=== PATIENT | female | born 1960 | race Two or more races ===

== ENCOUNTER 2016-12-26 22:26 | Emergency (ER) | payer OTHER ==
[~2016-12-26] VITALS: Ht 172.7 cm; Wt 90.0 kg
[2016-12-26] MEDS ORDERED: GABA-531 PO (22:36)
[2016-12-26] MEDS ORDERED: CYCL10 PO (22:36)
[2016-12-26] MEDS ORDERED: OMEP20 PO (22:36)
[2016-12-26] MEDS ORDERED: DiphenhydrAMINE HCL 25 MG CAPSULE PO ONE (23:45)
[2016-12-26] MEDS ORDERED: ACETAMINOPHEN/CODEINE 300-30 MG TABLET PO ONE (23:45)
[2016-12-26] MEDS ORDERED: CEPHALEXIN MONOHYDRATE 500 MG CAPSULE PO ONE (23:45)
[2016-12-27 00:59] VITALS: BP 149/79
== END 2016-12-27 01:30 | disposition home or self-care (01) ==
LOC: EMS 22:27
DX: J40 Bronchitis, not specified as acute or chronic (principal); K21.9 Gastro-esophageal reflux disease without esophagitis
CPT/HCPCS: 99284

== ENCOUNTER 2017-02-12 15:24 | Emergency (ER) | payer OTHER ==
[~2017-02-12] VITALS: Ht 162.6 cm; Wt 100.0 kg
[~2017-02-12 15:24] MED LIST: CYCL10 PO; GABA-531 PO; OMEP20 PO
[2017-02-12 16:31] VITALS: BP 134/81
[2017-02-12] MEDS ORDERED: DEXAMETHASONE SOD PHOS 4 MG/ML 5 ML VIAL IM ONE (18:15)
== END 2017-02-12 18:59 | disposition home or self-care (01) ==
LOC: EMS 15:25
DX: J02.8 Acute pharyngitis due to other specified organisms (principal); J06.9 Acute upper respiratory infection, unspecified; J40 Bronchitis, not specified as acute or chronic; B97.89 Other viral agents as the cause of diseases classified elsewhere; K21.9 Gastro-esophageal reflux disease without esophagitis
CPT/HCPCS: 71020; 87430; 96372; 99285; J1100

== ENCOUNTER 2021-05-24 17:39 | Emergency (ER) | payer OTHER ==
[~2021-05-24] VITALS: Ht 175.3 cm; Wt 109.1 kg
[~2021-05-24 17:39] MED LIST changes: -CYCL10 PO; +CYCL10TA17 PO; +GABA-1181 PO; -GABA-531 PO
[2021-05-24] MEDS ORDERED: TRAM50TA4 PO (17:53)
[2021-05-24 18:21] LABS: BASOPHILS % (AUTO) 0.6 % (0.0-2.0); EOSINOPHILS % (AUTO) 2.2 % (1.0-6.0); HEMATOCRIT 39.9 % (36-46); LYMPHOCYTES # (AUTO) 3.7 K/uL (1.0-4.8); LYMPHOCYTES % (AUTO) 36.9 % (22.0-44.0); MEAN CORPUSCULAR HEMOGLOBIN 26.3 pg (26.0-34.0); MEAN CORPUSCULAR HGB CONC 32.7 G/dL (31.0-37.0); MEAN CORPUSCULAR VOLUME 80 fL (80-100); MONOCYTES % (AUTO) 9.8 % (2.0-9.0); NEUTROPHILS # (AUTO) 5.1 K/uL (1.8-7.7); NEUTROPHILS % (AUTO) 50.5 % (40.0-70.0); PLATELET COUNT (AUTO) 337 K/uL (150-450); RED BLOOD CELL COUNT(AUTO) 4.96 MIL/uL (4.00-5.20)
[2021-05-24 18:29] LABS: ANION GAP 7 mmol/L (8-16); CARBON DIOXIDE 29 mmol/L (22-29); CHLORIDE 105 mmol/L (98-107); CREATININE 0.59 mg/dL (0.60-1.30); GLUCOSE,RANDOM 97 mg/dL (70-110); POTASSIUM 4.6 mmol/L (3.5-5.1); SODIUM SERUM 141 mmol/L (136-145); UREA NITROGEN, BLOOD 11 mg/dL (7-18)
[2021-05-24 18:30] LABS: CALCIUM, TOTAL 9.6 mg/dL (8.8-10.5); GLOMERULAR FILTR. RATE CALC > 60 mL/min (>60)
[2021-05-24 18:43] LABS: ALANINE AMINOTRANSFERASE 31 U/L (12-78); ALBUMIN 2.8 g/dL (3.4-5.0); ALKALINE PHOSPHATASE 84 U/L (46-116); ASPARTATE AMINOTRANSFERASE 22 U/L (15-37); BILIRUBIN,TOTAL 0.2 mg/dL (0.1-1.0); TOTAL PROTEIN, SERUM 7.7 g/dL (6.4-8.2)
[2021-05-24] MEDS ORDERED: FAMOTIDINE 20 MG TABLET PO ONE (20:15)
[2021-05-24] MEDS ORDERED: PB/HYOSCY/ATR/SCOP/LIDO/MAALOX 55 ML BOTTLE PO ONE (20:15)
[2021-05-24 21:08] VITALS: BP 133/69
== END 2021-05-24 21:08 | disposition home or self-care (01) ==
LOC: EMS 17:44
DX: R07.2 Precordial pain (principal); K21.9 Gastro-esophageal reflux disease without esophagitis; M54.30 Sciatica, unspecified side
CPT/HCPCS: 71045; 80053; 84484; 85025; 93005; 99285; 36415-L1; 36415-TC

== ENCOUNTER 2021-08-15 18:59 | Emergency (ER) | payer OTHER ==
[~2021-08-15] VITALS: Ht 170.2 cm; Wt 10.4 kg
[~2021-08-15 18:59] MED LIST changes: +TRAM50TA4 PO
[2021-08-15 19:37] VITALS: BP 139/78
[2021-08-15] MEDS ORDERED: CARB-60 PO (19:37)
[2021-08-15] MEDS ORDERED: MAG HYDROX/AL HYDROX/SIMETH 30 ML SUSP UDCUP PO ONE (19:45)
[2021-08-15] MEDS ORDERED: FAMOTIDINE 20 MG TABLET PO ONE (19:45)
[2021-08-15] MEDS ORDERED: ACETAMINOPHEN 500 MG TABLET PO ONE (19:45)
[2021-08-15] MEDS ORDERED: HYD25 PO (19:47)
[2021-08-15] MEDS ORDERED: IBUP-2077 PO (19:47)
[2021-08-15] MEDS ORDERED: CARB200T6 PO (19:47)
[2021-08-15 21:11] LABS: BASOPHILS % (AUTO) 0.6 % (0.0-2.0); EOSINOPHILS % (AUTO) 3.9 % (1.0-6.0); HEMATOCRIT 40.7 % (36-46); HEMOGLOBIN 13.7 g/dL (12.0-16.0); LYMPHOCYTES # (AUTO) 3.3 K/uL (1.0-4.8); LYMPHOCYTES % (AUTO) 41.9 % (22.0-44.0); MEAN CORPUSCULAR HEMOGLOBIN 27.6 pg (26.0-34.0); MEAN CORPUSCULAR HGB CONC 33.8 G/dL (31.0-37.0); MEAN CORPUSCULAR VOLUME 82 fL (80-100); MONOCYTES # (AUTO) 0.8 K/uL (0.1-1.0); MONOCYTES % (AUTO) 10.5 % (2.0-9.0); NEUTROPHILS # (AUTO) 3.4 K/uL (1.8-7.7); NEUTROPHILS % (AUTO) 43.1 % (40.0-70.0); PLATELET COUNT (AUTO) 323 K/uL (150-450); RED BLOOD CELL COUNT(AUTO) 4.98 MIL/uL (4.00-5.20); RED CELL DISTRIBUTION WIDTH 17.5 % (11.5-14.5)
[2021-08-15 21:18] LABS: ANION GAP 4 mmol/L (8-16); CARBON DIOXIDE 31 mmol/L (22-29); CHLORIDE 101 mmol/L (98-107); CREATININE 0.63 mg/dL (0.60-1.30); GLOMERULAR FILTR. RATE CALC > 60 mL/min (>60); GLUCOSE,RANDOM 106 mg/dL (70-110); SODIUM SERUM 136 mmol/L (136-145); UREA NITROGEN, BLOOD 10 mg/dL (7-18)
[2021-08-15 21:25] LABS: ALANINE AMINOTRANSFERASE 37 U/L (12-78); ALBUMIN 3.3 g/dL (3.4-5.0); ALKALINE PHOSPHATASE 104 U/L (46-116); ASPARTATE AMINOTRANSFERASE 25 U/L (15-37); BILIRUBIN,TOTAL 0.2 mg/dL (0.1-1.0); CREATINE KINASE, TOTAL ONLY 60 U/L (26-192); TOTAL PROTEIN, SERUM 8.1 g/dL (6.4-8.2)
[2021-08-15 21:31] LABS: B-TYPE NATRIURETIC PEPTIDE < 5 pg/mL (0-100)
== END 2021-08-15 23:28 | disposition home or self-care (01) ==
LOC: EMS 18:59
DX: R07.89 Other chest pain (principal); K21.9 Gastro-esophageal reflux disease without esophagitis; Z79.899 Other long term (current) drug therapy
CPT/HCPCS: 71045; 76700; 80053; 82550; 83880; 84484; 85025; 93005; 99285; 36415-L1; 36415-TC

== ENCOUNTER 2023-10-05 18:04 | Emergency (ER) | payer OTHER ==
[~2023-10-05] VITALS: Ht 167.6 cm; Wt 100.0 kg
[~2023-10-05 18:04] MED LIST changes: +CARB-92 PO; +CYCL-448 PO; -CYCL10TA17 PO; +HYDR-4527 PO; +IBUP-2077 PO; +TRAM-559 PO; -TRAM50TA4 PO
[2023-10-05 18:11] VITALS: TEMP 98.3
[2023-10-05 18:47] LABS: BASOPHILS % (AUTO) 0.6 % (0.0-2.0); EOSINOPHILS % (AUTO) 0.6 % (1.0-6.0); HEMATOCRIT 41.4 % (36-46); LYMPHOCYTES # (AUTO) 2.9 K/uL (1.0-4.8); MEAN CORPUSCULAR HGB CONC 33.7 G/dL (31.0-37.0); MEAN CORPUSCULAR VOLUME 89 fL (80-100); MONOCYTES # (AUTO) 1.1 K/uL (0.1-1.0); MONOCYTES % (AUTO) 8.7 % (2.0-9.0); NEUTROPHILS % (AUTO) 66.1 % (40.0-70.0); PLATELET COUNT (AUTO) 309 K/uL (150-450); RED BLOOD CELL COUNT(AUTO) 4.65 MIL/uL (4.00-5.20); WHITE BLOOD COUNT (AUTO) 12.1 K/uL (4.5-11.0)
[2023-10-05 18:55] LABS: ANION GAP 7 mmol/L (8-16); CALCIUM, TOTAL 9.9 mg/dL (8.8-10.5); CARBON DIOXIDE 27 mmol/L (22-29); CHLORIDE 100 mmol/L (98-107); CREATININE 0.65 mg/dL (0.60-1.30); GLOMERULAR FILTR. RATE CALC > 60 mL/min (>60); GLUCOSE,RANDOM 128 mg/dL (70-110); POTASSIUM 4.1 mmol/L (3.5-5.1); SODIUM SERUM 134 mmol/L (136-145); UREA NITROGEN, BLOOD 17 mg/dL (7-18)
[2023-10-05 19:03] LABS: ALANINE AMINOTRANSFERASE 31 U/L (12-78); ALBUMIN 2.5 g/dL (3.4-5.0); ALKALINE PHOSPHATASE 100 U/L (46-116); ASPARTATE AMINOTRANSFERASE 24 U/L (15-37); BILIRUBIN,TOTAL 0.2 mg/dL (0.1-1.0); LIPASE 23 U/L (16-77); TOTAL PROTEIN, SERUM 7.1 g/dL (6.4-8.2)
[2023-10-05] MEDS: FAMOTIDINE 20 MG/2 ML VIAL IVP ONE (19:35)
[2023-10-05] MEDS: KETOROLAC TROMETHAMINE 30 MG/ML VIAL IVP ONE (19:35)
[2023-10-05] MEDS: ONDANSETRON HCL 4 MG/2 ML VIAL IVP ONE (19:35)
[2023-10-05] MEDS: ACETAMINOPHEN 500 MG TABLET PO ONE (19:36)
[2023-10-05] MEDS: MAG HYDROX/ALUMINUM HYD/SIMETH 30 ML SUSPENSION UDCUP PO ONE (19:36)
[2023-10-05] MEDS ORDERED: IOHEXOL 350 MG/ML 100 ML VIAL ONE (20:04)
[2023-10-05] MEDS ORDERED: SODIUM CHLORIDE 0.9% 100 ML ONE (20:04)
[2023-10-05 23:15] VITALS: BP 125/72; PULSE 84; RESP 16
[2023-10-05] MEDS ORDERED: POLY17PO47 PO (23:42)
[2023-10-05] MEDS ORDERED: MELO-107 PO (23:42)
== END 2023-10-06 00:07 | disposition home or self-care (01) ==
LOC: EMS 18:11
DX: K59.00 Constipation, unspecified (principal); G89.29 Other chronic pain; M54.50 Low back pain, unspecified
CPT/HCPCS: 99285; 74177; 96374; 76705; 96375; 80053; 83690; 85025; 36415; J3490; J1885; J2405; Q9967; J7050